=== PATIENT | male | born 1980 | race Hispanic/Latino ===

== ENCOUNTER 2020-08-07 12:42 | Emergency (ER) | payer BC ==
--- OUTSIDE RECORDS SUMMARY | 2020-08-07 12:44 | XMS REPORT | Continuity of Care Document ---
:1980 Author Organization [facility] t Address [address] [place] [place] [address] Care Team Providers Name Role Phone Goyo Syed Attending Clinician Problems This patient has no known problems. Allergies, Adverse Reactions, Alerts This patient has no known allergies or adverse reactions. Medications This patient has no known medications. Procedures This patient has no known procedures. Encounters Start End Encounter Admission Attending Care Care Encounter Source Date/Time Date/Time Type Type Clinicians Facility Department ID 2020-07-27 2020-07-27 Office [facility]ady [id number] 14:19:02 14:49:02 Visit Sunshine Hairston [id number] Cancer [id number] Center - [id number] [facility] 204 Results This patient has no known results.
[2020-08-07] MEDS ORDERED: HYDROCODONE/APAP 10/325 TAB ONE (14:06)
[2020-08-07] MEDS ORDERED: BUPIVACAINE 0.5% PF 10 ML VIAL ONE (14:06)
[2020-08-07] MEDS ORDERED: LIDOCAINE 1% W/EPI 1:100,000 MDV 20 ML VIAL ONE (14:06)
--- NOTE | 2020-08-07 14:45 | ER ---
Nurse's Notes [facility] Name: Don Watt Age: 39 yrs Sex: Male : 1980 Arrival Date: 08/07/2020 Time: 12:45 Bed 6 Private MD: Diagnosis: Hemorrhoids and perianal venous thrombosis Presentation: 08/07 12:50 Chief complaint: Patient states: Rectal bleeding off/on for 3 days, worse today. Went ll1 to Dr. Cabrera today. He was told he has a Hemoriod's that needs surgery to be removed. No fever. Coronavirus screen: Client denies travel out of the [place] in the last 14 days. At this time, the client does not indicate any symptoms associated with coronavirus-19. Ebola Screen: Patient denies travel to an Ebola-affected area in the 21 days before illness onset. Initial Sepsis Screen: Does the patient meet any 2 criteria? No. Patient's initial sepsis screen is negative. Does the patient have a suspected source of infection? Yes: Other: rectal bleeding. Risk Assessment: Do you want to hurt yourself or someone else? Patient reports no desire to harm self or others. Onset of symptoms was August 05, 2020. 12:50 Method Of Arrival: Ambulatory ll1 12:50 Acuity: BARRIE 3 ll1 Triage Assessment: 12:57 General: Appears in no apparent distress. uncomfortable, Behavior is cooperative, bp appropriate for age, anxious. Pain: Complains of pain in buttocks. EENT: No deficits noted. Neuro: No deficits noted. Cardiovascular: No deficits noted. Respiratory: No deficits noted. GI: Reports rectal bleeding. : No signs and/or symptoms were reported regarding the genitourinary system. Derm: No deficits noted. Musculoskeletal: No deficits noted. Historical: - Allergies: 12:53 Losartan; ll1 - PMHx: 12:53 Hypertension; no longer take meds for HTN; ll1 - PSHx: 12:53 None; ll1 - Immunization history:: Flu vaccine is not up to date. - Social history:: Smoking status: Patient reports the use of cigarette tobacco products, denies chronic smoking, but will smoke occasionally. Screenin:58 Abuse screen: Denies threats or abuse. Denies injuries from another. Nutritional bp screening: No deficits noted. Tuberculosis screening: No symptoms or risk factors identified. Fall Risk None identified. Assessment: 12:58 General: SEE TRIAGE NOTE. bp Vital Signs: 12:50 BP 152 / 99; Pulse 73; Resp 16; Temp 98.1; Pulse Ox 96% ; Weight 156.49 kg; Height 6 ll1 ft. 2 in. (187.96 cm); Pain 2/10; 12:50 Body Mass Index 44.29 (156.49 kg, 187.96 cm) ll1 ED Course: 12:45 Patient arrived in ED. bp1 12:52 Triage completed. ll1 12:53 Arm band placed on Patient placed in an exam room, on a stretcher. ll1 12:56 Rock Hopson, RN is Primary Nurse. bp 12:58 Patient has correct armband on for positive identification. Bed in low position. Call bp light in reach. Side rails up X2. 13:17 Patrick Beyer PA is PHCP. cp 13:17 Juan M Ayala MD is Attending Physician. cp 14:30 Assist provider with I \T\ D: of an abscess on external hemorrhoid Set up I\T\D tray. bp Performed by Patrick HARRY Dressing with 4X4s, Patient tolerated well. 14:44 Daljit Alarcon MD is Referral Physician. cp Administered Medications: 13:50 Drug: HYDROcodone-acetaminophen 10 mg-325 mg 1 tabs Route: PO; bp 14:47 Follow up: Response: Pain is decreased bp 13:51 Drug: Lidocaine-Epinephrine -1%: (1:100,000) 5 ml {Note: AT B/S.} Volume: 20 ml; Route: bp Infiltration; 13:51 Drug: Marcaine (bupivacaine) (0.5 %) 10 ml {Note: AT B/S.} Volume: 10 ml; Route: bp Infiltration; Outcome: 14:45 Discharge ordered by . cp 15:10 Patient left the ED. ll1 Signatures: Patrick Beyer PA PA cp Rock Hopson, RN RN Avril Stearns RN RN ll1 Diane De León bp1
--- NOTE | 2020-08-07 14:45 | EDPHYS ---
Physician Documentation [facility] Name: Don Watt Age: 39 yrs Sex: Male : 1980 Arrival Date: 08/07/2020 Time: 12:45 Bed 6 Private MD: ED Physician Juan M Ayala HPI: 08/07 13:45 This 39 yrs old Male presents to ER via Ambulatory with complaints of Rectal cp Bleeding, Hemorrhoids. 13:45 The patient presents to the emergency department with bleeding from the rectum/anus, cp pain in the rectal area. Onset: The symptoms/episode began/occurred last week. Context: the patient has a known history of hemorrhoids. Associate signs and symptoms: Pertinent negatives: abdominal pain, constipation, diarrhea, fever. Historical: - Allergies: 12:53 Losartan; ll1 - PMHx: 12:53 Hypertension; no longer take meds for HTN; ll1 - PSHx: 12:53 None; ll1 - Immunization history:: Flu vaccine is not up to date. - Social history:: Smoking status: Patient reports the use of cigarette tobacco products, denies chronic smoking, but will smoke occasionally. ROS: 13:47 Constitutional: Negative for fever. cp 13:47 Abdomen/GI: Positive for rectal pain, rectal bleeding, Negative for abdominal pain, diarrhea, constipation. Exam: 13:55 Constitutional: The patient appears in no acute distress, alert, awake, non-toxic, well cp developed, well nourished, obese, uncomfortable. 13:55 Head/Face: Normocephalic, atraumatic. cp 13:55 Chest/axilla: Inspection: normal. 13:55 Cardiovascular: Rate: normal. 13:55 Respiratory: the patient does not display signs of respiratory distress, Respirations: normal, no use of accessory muscles, no retractions, labored breathing, is not present. 13:55 Abdomen/GI: Inspection: abdomen appears normal, Palpation: abdomen is soft and non-tender, in all quadrants, Rectal exam: hemorrhoid(s), external, with associated bleeding, with inflammation, with pain, with thrombosis. Vital Signs: 12:50 BP 152 / 99; Pulse 73; Resp 16; Temp 98.1; Pulse Ox 96% ; Weight 156.49 kg; Height 6 ll1 ft. 2 in. (187.96 cm); Pain 2/10; 12:50 Body Mass Index 44.29 (156.49 kg, 187.96 cm) ll1 Procedures: 15:00 I \T\ D: Incision and drainage was performed for an abscess of the external hemorrhoid cp Prepped with Betadine, Anesthetized with 7 ccs of mixture 1% lidocaine with epi and 0.5% marcaine. Incised with #11 blade. Drained small amount clotted blood Dressing: sterile 4x4 gauze, the patient tolerated the procedure well. MDM: 13:19 Patient medically screened. cp 14:00 Differential diagnosis: hemorrhoids, abscess, pilonidal cyst. cp 14:40 ED course: No results found on inquiry of [employer] prescription monitor program website. cp 14:45 Data reviewed: vital signs, nurses notes, and as a result, I will discharge patient. cp 14:45 Counseling: I had a detailed discussion with the patient and/or guardian regarding: the cp historical points, exam findings, and any diagnostic results supporting the discharge/admit diagnosis, the need for outpatient follow up, a general surgeon, to return to the emergency department if symptoms worsen or persist or if there are any questions or concerns that arise at home. Response to treatment: the patient's symptoms have markedly improved after treatment, and as a result, I will discharge patient. 08/07 13:40 Order name: Dressing - Wound; Complete Time: 13:51 cp 08/07 13:40 Order name: Gloves, Sterile; Complete Time: 13:51 cp 08/07 13:40 Order name: Setup Suture Tray; Complete Time: 13:51 cp Administered Medications: 13:50 Drug: HYDROcodone-acetaminophen 10 mg-325 mg 1 tabs Route: PO; bp 14:47 Follow up: Response: Pain is decreased bp 13:51 Drug: Lidocaine-Epinephrine -1%: (1:100,000) 5 ml {Note: AT B/S.} Volume: 20 ml; Route: bp Infiltration; 13:51 Drug: Marcaine (bupivacaine) (0.5 %) 10 ml {Note: AT B/S.} Volume: 10 ml; Route: bp Infiltration; Disposition: 15:15 Chart complete. cp 16:38 Co-signature as Attending Physician, Juan M Ayala MD I agree with the assessment and kdr plan of care. Disposition: 08/07/20 14:45 Discharged to Home. Impression: Hemorrhoids and perianal venous thrombosis. - Condition is Stable. - Discharge Instructions: Hemorrhoids, How to Take a Sitz Bath. - Prescriptions for Colace 100 mg Oral Capsule - take 2 tablet by ORAL route every 12 hours; 30 tablet. Tylenol- Codeine #3 300-30 mg Oral Tablet - take 2 tablets by ORAL route every 4-6 hours As needed; 20 tablet. - Medication Reconciliation Form, Thank You Letter, Antibiotic Education, Prescription Opioid Use form. - Follow up: Daljit Alarcon MD; When: 2 - 3 days; Reason: Recheck today's complaints. - Problem is an ongoing problem. - Symptoms have improved. Signatures: Juan M Ayala MD MD [facility] Patrick Beyer PA PA cp Peltier, Brian, RN RN bp Avril Gross RN RN ll1 Corrections: (The following items were deleted from the chart) 15:10 14:45 08/07/2020 14:45 Discharged to Home. Impression: Hemorrhoids and perianal venous ll1 thrombosis. Condition is Stable. Forms are Medication Reconciliation Form, Thank You Letter, Antibiotic Education, Prescription Opioid Use. Follow up: Daljit Alarcon; When: 2 - 3 days; Reason: Recheck today's complaints. Problem is an ongoing problem. Symptoms have improved. cp
[2020-08-07 15:16] VITALS: BP 152/99; TEMP 98.1; O2SAT 96
== END 2020-08-07 15:10 | disposition home or self-care (01) ==
LOC: ER 12:42
PROC: 0D9QXZZ Drainage of Anus, External Approach (ICD-10-PCS; principal; 2020-08-07)
DX: K64.5 Perianal venous thrombosis (principal); I10 Essential (primary) hypertension; F17.210 Nicotine dependence, cigarettes, uncomplicated; Z88.8 Allergy status to other drugs, medicaments and biological substances
CPT/HCPCS: 99283

== ENCOUNTER 2024-02-03 07:46 | Emergency (ER) | payer BC ==
--- OUTSIDE RECORDS SUMMARY | 2024-02-03 07:50 | XMS REPORT | Continuity of Care Document ---
Author Name Unknown Address [address] [place] [address] [facility] thconnect Address [address] [place] [address] Care Team Providers Care Physical Therapy Attendant Name Role Phone Regi Galeas Primary Care Physician [phone] VE POWERS Attending Clinician Unavailable Doctor Unassigned, [place] Attending Clinician U navailable Regi Galeas Attending Clinician [phone] Lab, Ang - Db Attending Clinician Unavailable REGI LORENZ Attending Clinician Unavailable Dayron Attending Clinician Unavail able Christiano Escoto Attending Clinician Unavailab Christiano Frye Attending Clinician [phone] MERRY BENITEZ Attending Clinician Unavaila [facility] Attending Clinician [phone] Dayron Admitting Clinician Unavail able Christiano Escoto Admitting Clinician Unavailab le Payers Payer Name Policy Type Policy Number Effective Date Expirati on Date Source BCBS 2 [id number] 2022 00[place] [id number] 2012 00:00:00 Problems Condition Name Condition Details Condition Category Status Onset Date Resolution Date Last Treatment Date Treating Clinician Comments Source 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 Problem Active 2021-03 0-11 00:00: 00 [facility] Pain in right foot Pain in Right Foot Problem Active 11-22 00:00: 00 [facility] Plantar fasciitis of right foot Plantar Fasciitis of Right Foot Problem Active 11-22 00:00: 00 [facility] Peroneal tendinitis of right lower limb Peroneal Tendinitis of Right Lower Limb Problem Active 11-22 00:00: 00 [facility] 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 Disease Active 07-31 00:00: 00 [facility] 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 Disease Active 07-31 00:00: 00 [facility] Acute cystitis without hematuria Acute cystitis without hematuria Disease Active 07-27 00:00: 00 [facility] Pain in both testicles Pain in both testicles Disease Active 06-23 00:00: 00 [facility] History of UTI History of UTI Disease Active 06-23 00:00: [address] [facility] Abnormal CT of the abdomen Abnormal CT of the abdomen Disease Active 04-11 00:00: 00 [facility] Prediabete s Prediabete s Disease Active 03-29 00:00: 00 [facility] Morbid obesity with BMI of 45.0-49.9, adult Morbid obesity with BMI of 45.0-49.9, adult Disease Active 06-13 00:00: 00 [facility] Essential hypertensi on Essential hypertensi on Disease Active 04-25 00:00: 00 [facility] Fatty liver Fatty liver Disease Active [facility] Hypertensi on Hypertensi on Disease Active [facility] Morbid obesity Morbid obesity Disease Active [facility] Allergies, Adverse Reactions, Alerts Allergy Name Allergy Type Status Severity Reaction(s) Onset Date Inactive Date Treating Clinician Comments Source losartan DA Active [facility] COUGH 12-07 00:00: 00 [facility] LISINOPR [place] DRUG INGREDI Active COUGH 04-25 00:00: 00 [facility] Lisinopr il Propensi ty to adverse reaction s to drug Active Cough 04-25 00:00: 00 [facility] Lisinopr il Propensi ty to adverse reaction s Active Unknown - See comments 04-25 00:00: 00 [facility] Social History Social Habit Start Date Stop Date Quantity Comments Source Gender identity [facility] Sexual orientation [facility] History SDOH Alcohol Std Drinks [facility] History SDOH Alcohol Binge [facility] Tobacco Comment 2022-10-05 00:00:00 2022-10-05 00:00:00 1-2 cigarettes daily [facility] History of Social function 2022-10-05 00:00:00 2022-10-05 00:00:00 [facility] Tobacco use and exposure 2022-10-05 00:00:00 2022-10-05 00:00:00 Smokeless tobacco non-user [facility] Alcohol intake 2022-10-05 00:00:00 2022-10-05 00:00:00 Current drinker of alcohol (finding) [facility] Exposure to SARS-CoV-2 (event) 2021-07-18 00:00:00 2021-07-28 07:39:00 Not sure [facility] History SDOH Alcohol Frequency 2018-12-19 00:00:00 2018-12-19 00:00:00 2 [facility] Alcohol Comment 2018-12-19 00:00:00 2018-12-19 00:00:00 1 drink per month [facility] History of tobacco use 2015-09-23 00:00:00 Cigarette Smoker [facility] Sex Assigned At 1980 00:00:00 1980 00:00:00 [facility] Smoking Status Start Date Stop Date Source Light Tobacco Smoker [facility] Medicine Occasional tobacco smoker 2022-10-05 00:00:00 [facility] Medications Ordered Medication Name Filled Medication Name Start Date Stop Date Current Medication? Ordering Clinician Indication Dosage Frequency Signature (SIG) Comments Components Source semaglutide (OZEMPIC) 0.25 mg or 0.5 mg (2 mg/3 mL) PnIj 10-12 00:00: 00 Yes [id number] .25mg inject 0.25 mg under the skin weekly. [facility] semaglutide (OZEMPIC) 0.25 mg or 0.5 mg(2 mg/1.5 mL) PnIj 10-09 00:00: 00 10-12 00:00 :00 No [id number] .25mg inject 0.25 mg under the skin weekly. [facility] losartan 25 mg tablet 10-05 00:00: 00 Yes [id number] 25mg Take 1 tablet by mouth in the morning. [facility] hydrocortis one (ANUSOL-HC) 2.5 % rectal cream 07-31 00:00: 00 Yes [id number] Apply BID to hemorrhoid after BM as needed. [facility] amoxicillin 875 mg-potassiu m clavulanate 125 mg tablet TAKE 1 TABLET BY MOUTH TWICE DAILY. amoxicillin 875 mg-potassiu m clavulanate 125 mg tablet TAKE 1 TABLET BY MOUTH TWICE DAILY. No amoxicilli n 875 mg-potassi um clavulanat e 125 mg tablet TAKE 1 TABLET BY MOUTH TWICE DAILY. [facility] cephalexin 500 mg capsule Take 1 capsule every 6 hours by oral route. cephalexin 500 mg capsule Take 1 capsule every 6 hours by oral route. No cephalexin 500 mg capsule Take 1 capsule every 6 hours by oral route. [facility] ciprofloxac in 500 mg tablet TAKE 1 TABLET BY MOUTH EVERY DAY WITH MEALS ciprofloxac in 500 mg tablet TAKE 1 TABLET BY MOUTH EVERY DAY WITH MEALS No ciprofloxa ganesh 500 mg tablet TAKE 1 TABLET BY MOUTH EVERY DAY WITH MEALS [facility] etodolac 500 mg tablet TAKE 1 TABLET BY MOUTH TWICE DAILY etodolac 500 mg tablet TAKE 1 TABLET BY MOUTH TWICE DAILY No etodolac 500 mg tablet TAKE 1 TABLET BY MOUTH TWICE DAILY [facility] hydrocodone 7.5 mg-acetamin ophen 325 mg tablet TAKE 1 TABLET BY MOUTH EVERY 4 TO 6 HOURS hydrocodone 7.5 mg-acetamin ophen 325 mg tablet TAKE 1 TABLET BY MOUTH EVERY 4 TO 6 HOURS No hydrocodon e 7.5 mg-acetami nophen 325 mg tablet TAKE 1 TABLET BY MOUTH EVERY 4 TO 6 HOURS [facility] methylpredn isolone 4 mg tablets in a dose pack FOLLOW PACKAGE DIRECTIONS methylpredn isolone 4 mg tablets in a dose pack FOLLOW PACKAGE DIRECTIONS No methylpred nisolone 4 mg tablets in a dose pack FOLLOW PACKAGE DIRECTIONS [facility] minocycline 100 mg tablet TAKE 1 TABLET BY MOUTH EVERY 12 HOURS WITH MEALS minocycline 100 mg tablet TAKE 1 TABLET BY MOUTH EVERY 12 HOURS WITH MEALS No minocyclin e 100 mg tablet TAKE 1 TABLET BY MOUTH EVERY 12 HOURS WITH MEALS [facility] amoxicillin 875 mg-potassiu m clavulanate 125 mg tablet TAKE 1 TABLET BY MOUTH TWICE DAILY. amoxicillin 875 mg-potassiu m clavulanate 125 mg tablet TAKE 1 TABLET BY MOUTH TWICE DAILY. No amoxicilli n 875 mg-potassi um clavulanat e 125 mg tablet TAKE 1 TABLET BY MOUTH TWICE DAILY. [facility] cephalexin 500 mg capsule Take 1 capsule every 6 hours by oral route. cephalexin 500 mg capsule Take 1 capsule every 6 hours by oral route. No cephalexin 500 mg capsule Take 1 capsule every 6 hours by oral route. [facility] ciprofloxac in 500 mg tablet TAKE 1 TABLET BY MOUTH EVERY DAY WITH MEALS ciprofloxac in 500 mg tablet TAKE 1 TABLET BY MOUTH EVERY DAY WITH MEALS No ciprofloxa ganesh 500 mg tablet TAKE 1 TABLET BY MOUTH EVERY DAY WITH MEALS [facility] etodolac 500 mg tablet TAKE 1 TABLET BY MOUTH TWICE DAILY etodolac 500 mg tablet TAKE 1 TABLET BY MOUTH TWICE DAILY No etodolac 500 mg tablet TAKE 1 TABLET BY MOUTH TWICE DAILY [facility] hydrocodone 7.5 mg-acetamin ophen 325 mg tablet TAKE 1 TABLET BY MOUTH EVERY 4 TO 6 HOURS hydrocodone 7.5 mg-acetamin ophen 325 mg tablet TAKE 1 TABLET BY MOUTH EVERY 4 TO 6 HOURS No hydrocodon e 7.5 mg-acetami nophen 325 mg tablet TAKE 1 TABLET BY MOUTH EVERY 4 TO 6 HOURS [facility] methylpredn isolone 4 mg tablets in a dose pack FOLLOW PACKAGE DIRECTIONS methylpredn isolone 4 mg tablets in a dose pack FOLLOW PACKAGE DIRECTIONS No methylpred nisolone 4 mg tablets in a dose pack FOLLOW PACKAGE DIRECTIONS [facility] minocycline 100 mg tablet TAKE 1 TABLET BY MOUTH EVERY 12 HOURS WITH MEALS minocycline 100 mg tablet TAKE 1 TABLET BY MOUTH EVERY 12 HOURS WITH MEALS No minocyclin e 100 mg tablet TAKE 1 TABLET BY MOUTH EVERY 12 HOURS WITH MEALS [facility] amoxicillin 875 mg-potassiu m clavulanate 125 mg tablet TAKE 1 TABLET BY MOUTH TWICE DAILY. amoxicillin 875 mg-potassiu m clavulanate 125 mg tablet TAKE 1 TABLET BY MOUTH TWICE DAILY. No amoxicilli n 875 mg-potassi um clavulanat e 125 mg tablet TAKE 1 TABLET BY MOUTH TWICE DAILY. [facility] cephalexin 500 mg capsule Take 1 capsule every 6 hours by oral route. cephalexin 500 mg capsule Take 1 capsule every 6 hours by oral route. No cephalexin 500 mg capsule Take 1 capsule every 6 hours by oral route. [facility] ciprofloxac in 500 mg tablet TAKE 1 TABLET BY MOUTH EVERY DAY WITH MEALS ciprofloxac in 500 mg tablet TAKE 1 TABLET BY MOUTH EVERY DAY WITH MEALS No ciprofloxa ganesh 500 mg tablet TAKE 1 TABLET BY MOUTH EVERY DAY WITH MEALS [facility] etodolac 500 mg tablet TAKE 1 TABLET BY MOUTH TWICE DAILY etodolac 500 mg tablet TAKE 1 TABLET BY MOUTH TWICE DAILY No etodolac 500 mg tablet TAKE 1 TABLET BY MOUTH TWICE DAILY [facility] hydrocodone 7.5 mg-acetamin ophen 325 mg tablet TAKE 1 TABLET BY MOUTH EVERY 4 TO 6 HOURS hydrocodone 7.5 mg-acetamin ophen 325 mg tablet TAKE 1 TABLET BY MOUTH EVERY 4 TO 6 HOURS No hydrocodon e 7.5 mg-acetami nophen 325 mg tablet TAKE 1 TABLET BY MOUTH EVERY 4 TO 6 HOURS [facility] methylpredn isolone 4 mg tablets in a dose pack FOLLOW PACKAGE DIRECTIONS methylpredn isolone 4 mg tablets in a dose pack FOLLOW PACKAGE DIRECTIONS No methylpred nisolone 4 mg tablets in a dose pack FOLLOW PACKAGE DIRECTIONS [facility] minocycline 100 mg tablet TAKE 1 TABLET BY MOUTH EVERY 12 HOURS WITH MEALS minocycline 100 mg tablet TAKE 1 TABLET BY MOUTH EVERY 12 HOURS WITH MEALS No minocyclin e 100 mg tablet TAKE 1 TABLET BY MOUTH EVERY 12 HOURS WITH MEALS [facility] amoxicillin 875 mg-potassiu m clavulanate 125 mg tablet TAKE 1 TABLET BY MOUTH TWICE DAILY. amoxicillin 875 mg-potassiu m clavulanate 125 mg tablet TAKE 1 TABLET BY MOUTH TWICE DAILY. No amoxicilli n 875 mg-potassi um clavulanat e 125 mg tablet TAKE 1 TABLET BY MOUTH TWICE DAILY. [facility] cephalexin 500 mg capsule Take 1 capsule every 6 hours by oral route. cephalexin 500 mg capsule Take 1 capsule every 6 hours by oral route. No cephalexin 500 mg capsule Take 1 capsule every 6 hours by oral route. [facility] ciprofloxac in 500 mg tablet TAKE 1 TABLET BY MOUTH EVERY DAY WITH MEALS ciprofloxac in 500 mg tablet TAKE 1 TABLET BY MOUTH EVERY DAY WITH MEALS No ciprofloxa ganesh 500 mg tablet TAKE 1 TABLET BY MOUTH EVERY DAY WITH MEALS [facility] etodolac 500 mg tablet TAKE 1 TABLET BY MOUTH TWICE DAILY etodolac 500 mg tablet TAKE 1 TABLET BY MOUTH TWICE DAILY No etodolac 500 mg tablet TAKE 1 TABLET BY MOUTH TWICE DAILY [facility] gabapentin 300 mg capsule Take 1 capsule every day by oral route at bedtime. gabapentin 300 mg capsule Take 1 capsule every day by oral route at bedtime. No 1capsul e(s) Q1D gabapentin 300 mg capsule Take 1 capsule every day by oral route at bedtime. [facility] hydrocodone 7.5 mg-acetamin ophen 325 mg tablet TAKE 1 TABLET BY MOUTH EVERY 4 TO 6 HOURS hydrocodone 7.5 mg-acetamin ophen 325 mg tablet TAKE 1 TABLET BY MOUTH EVERY 4 TO 6 HOURS No hydrocodon e 7.5 mg-acetami nophen 325 mg tablet TAKE 1 TABLET BY MOUTH EVERY 4 TO 6 HOURS [facility] methylpredn isolone 4 mg tablets in a dose pack FOLLOW PACKAGE DIRECTIONS methylpredn isolone 4 mg tablets in a dose pack FOLLOW PACKAGE DIRECTIONS No methylpred nisolone 4 mg tablets in a dose pack FOLLOW PACKAGE DIRECTIONS [facility] minocycline 100 mg tablet TAKE 1 TABLET BY MOUTH EVERY 12 HOURS WITH MEALS minocycline 100 mg tablet TAKE 1 TABLET BY MOUTH EVERY 12 HOURS WITH MEALS No minocyclin e 100 mg tablet TAKE 1 TABLET BY MOUTH EVERY 12 HOURS WITH MEALS [facility] amoxicillin 875 mg-potassiu m clavulanate 125 mg tablet TAKE 1 TABLET BY MOUTH TWICE DAILY amoxicillin 875 mg-potassiu m clavulanate 125 mg tablet TAKE 1 TABLET BY MOUTH TWICE DAILY No amoxicilli n 875 mg-potassi um clavulanat e 125 mg tablet TAKE 1 TABLET BY MOUTH TWICE DAILY [facility] bromphenira mine-pseudo ephedrine-D M 2 mg-30 mg-10 mg/5 mL oral syrup TAKE 5 ML BY MOUTH EVERY 5 HOURS bromphenira mine-pseudo ephedrine-D M 2 mg-30 mg-10 mg/5 mL oral syrup TAKE 5 ML BY MOUTH EVERY 5 HOURS No bromphenir amine-pseu doephedrin e-DM 2 mg-30 mg-10 mg/5 mL oral syrup TAKE 5 ML BY MOUTH EVERY 5 HOURS [facility] cephalexin 500 mg capsule Take 1 capsule every 6 hours by oral route. cephalexin 500 mg capsule Take 1 capsule every 6 hours by oral route. No cephalexin 500 mg capsule Take 1 capsule every 6 hours by oral route. [facility] ciprofloxac in 500 mg tablet TAKE 1 TABLET BY MOUTH EVERY DAY WITH MEALS ciprofloxac in 500 mg tablet TAKE 1 TABLET BY MOUTH EVERY DAY WITH MEALS No ciprofloxa ganesh 500 mg tablet TAKE 1 TABLET BY MOUTH EVERY DAY WITH MEALS [facility] etodolac 500 mg tablet TAKE 1 TABLET BY MOUTH TWICE DAILY etodolac 500 mg tablet TAKE 1 TABLET BY MOUTH TWICE DAILY No etodolac 500 mg tablet TAKE 1 TABLET BY MOUTH TWICE DAILY [facility] gabapentin 300 mg capsule TAKE 1 CAPSULE BY MOUTH EVERY DAY AT BEDTIME gabapentin 300 mg capsule TAKE 1 CAPSULE BY MOUTH EVERY DAY AT BEDTIME No gabapentin 300 mg capsule TAKE 1 CAPSULE BY MOUTH EVERY DAY AT BEDTIME [facility] hydrocodone 7.5 mg-acetamin ophen 325 mg tablet TAKE 1 TABLET BY MOUTH EVERY 4 TO 6 HOURS hydrocodone 7.5 mg-acetamin ophen 325 mg tablet TAKE 1 TABLET BY MOUTH EVERY 4 TO 6 HOURS No hydrocodon e 7.5 mg-acetami nophen 325 mg tablet TAKE 1 TABLET BY MOUTH EVERY 4 TO 6 HOURS [facility] methylpredn isolone 4 mg tablets in a dose pack FOLLOW PACKAGE DIRECTIONS methylpredn isolone 4 mg tablets in a dose pack FOLLOW PACKAGE DIRECTIONS No methylpred nisolone 4 mg tablets in a dose pack FOLLOW PACKAGE DIRECTIONS [facility] minocycline 100 mg tablet TAKE 1 TABLET BY MOUTH EVERY 12 HOURS WITH MEALS minocycline 100 mg tablet TAKE 1 TABLET BY MOUTH EVERY 12 HOURS WITH MEALS No minocyclin e 100 mg tablet TAKE 1 TABLET BY MOUTH EVERY 12 HOURS WITH MEALS [facility] amoxicillin 875 mg-potassiu m clavulanate 125 mg tablet TAKE 1 TABLET BY MOUTH TWICE DAILY. amoxicillin 875 mg-potassiu m clavulanate 125 mg tablet TAKE 1 TABLET BY MOUTH TWICE DAILY. No amoxicilli n 875 mg-potassi um clavulanat e 125 mg tablet TAKE 1 TABLET BY MOUTH TWICE DAILY. [facility] cephalexin 500 mg capsule Take 1 capsule every 6 hours by oral route. cephalexin 500 mg capsule Take 1 capsule every 6 hours by oral route. No cephalexin 500 mg capsule Take 1 capsule every 6 hours by oral route. [facility] etodolac 500 mg tablet TAKE 1 TABLET BY MOUTH TWICE DAILY etodolac 500 mg tablet TAKE 1 TABLET BY MOUTH TWICE DAILY No etodolac 500 mg tablet TAKE 1 TABLET BY MOUTH TWICE DAILY [facility] hydrocodone 7.5 mg-acetamin ophen 325 mg tablet Take 1 tablet every 4-6 hours by oral route. hydrocodone 7.5 mg-acetamin ophen 325 mg tablet Take 1 tablet every 4-6 hours by oral route. No 1 Q5H hydrocodon e 7.5 mg-acetami nophen 325 mg tablet Take 1 tablet every 4-6 hours by oral route. [facility] methylpredn isolone 4 mg tablets in a dose pack FOLLOW PACKAGE DIRECTIONS methylpredn isolone 4 mg tablets in a dose pack FOLLOW PACKAGE DIRECTIONS No methylpred nisolone 4 mg tablets in a dose pack FOLLOW PACKAGE DIRECTIONS [facility] amoxicillin 875 mg-potassiu m clavulanate 125 mg tablet TAKE 1 TABLET BY MOUTH TWICE DAILY. amoxicillin 875 mg-potassiu m clavulanate 125 mg tablet TAKE 1 TABLET BY MOUTH TWICE DAILY. No amoxicilli n 875 mg-potassi um clavulanat e 125 mg tablet TAKE 1 TABLET BY MOUTH TWICE DAILY. [facility] cephalexin 500 mg capsule Take 1 capsule every 6 hours by oral route. cephalexin 500 mg capsule Take 1 capsule every 6 hours by oral route. No cephalexin 500 mg capsule Take 1 capsule every 6 hours by oral route. [facility] etodolac 500 mg tablet TAKE 1 TABLET BY MOUTH TWICE DAILY etodolac 500 mg tablet TAKE 1 TABLET BY MOUTH TWICE DAILY No etodolac 500 mg tablet TAKE 1 TABLET BY MOUTH TWICE DAILY [facility] hydrocodone 7.5 mg-acetamin ophen 325 mg tablet TAKE 1 TABLET BY MOUTH EVERY 4 TO 6 HOURS hydrocodone 7.5 mg-acetamin ophen 325 mg tablet TAKE 1 TABLET BY MOUTH EVERY 4 TO 6 HOURS No hydrocodon e 7.5 mg-acetami nophen 325 mg tablet TAKE 1 TABLET BY MOUTH EVERY 4 TO 6 HOURS [facility] methylpredn isolone 4 mg tablets in a dose pack FOLLOW PACKAGE DIRECTIONS methylpredn isolone 4 mg tablets in a dose pack FOLLOW PACKAGE DIRECTIONS No methylpred nisolone 4 mg tablets in a dose pack FOLLOW PACKAGE DIRECTIONS [facility] amoxicillin 875 mg-potassiu m clavulanate 125 mg tablet TAKE 1 TABLET BY MOUTH TWICE DAILY. amoxicillin 875 mg-potassiu m clavulanate 125 mg tablet TAKE 1 TABLET BY MOUTH TWICE DAILY. No amoxicilli n 875 mg-potassi um clavulanat e 125 mg tablet TAKE 1 TABLET BY MOUTH TWICE DAILY. [facility] cephalexin 500 mg capsule Take 1 capsule every 6 hours by oral route. cephalexin 500 mg capsule Take 1 capsule every 6 hours by oral route. No cephalexin 500 mg capsule Take 1 capsule every 6 hours by oral route. [facility] etodolac 500 mg tablet TAKE 1 TABLET BY MOUTH TWICE DAILY etodolac 500 mg tablet TAKE 1 TABLET BY MOUTH TWICE DAILY No etodolac 500 mg tablet TAKE 1 TABLET BY MOUTH TWICE DAILY [facility] hydrocodone 7.5 mg-acetamin ophen 325 mg tablet TAKE 1 TABLET BY MOUTH EVERY 4 TO 6 HOURS hydrocodone 7.5 mg-acetamin ophen 325 mg tablet TAKE 1 TABLET BY MOUTH EVERY 4 TO 6 HOURS No hydrocodon e 7.5 mg-acetami nophen 325 mg tablet TAKE 1 TABLET BY MOUTH EVERY 4 TO 6 HOURS [facility] methylpredn isolone 4 mg tablets in a dose pack FOLLOW PACKAGE DIRECTIONS methylpredn isolone 4 mg tablets in a dose pack FOLLOW PACKAGE DIRECTIONS No methylpred nisolone 4 mg tablets in a dose pack FOLLOW PACKAGE DIRECTIONS [facility] amoxicillin 875 mg-potassiu m clavulanate 125 mg tablet TAKE 1 TABLET BY MOUTH TWICE DAILY. amoxicillin 875 mg-potassiu m clavulanate 125 mg tablet TAKE 1 TABLET BY MOUTH TWICE DAILY. No amoxicilli n 875 mg-potassi um clavulanat e 125 mg tablet TAKE 1 TABLET BY MOUTH TWICE DAILY. [facility] cephalexin 500 mg capsule Take 1 capsule every 6 hours by oral route. cephalexin 500 mg capsule Take 1 capsule every 6 hours by oral route. No cephalexin 500 mg capsule Take 1 capsule every 6 hours by oral route. [facility] ciprofloxac in 500 mg tablet TAKE 1 TABLET BY MOUTH EVERY DAY WITH MEALS ciprofloxac in 500 mg tablet TAKE 1 TABLET BY MOUTH EVERY DAY WITH MEALS No ciprofloxa ganesh 500 mg tablet TAKE 1 TABLET BY MOUTH EVERY DAY WITH MEALS [facility] etodolac 500 mg tablet TAKE 1 TABLET BY MOUTH TWICE DAILY etodolac 500 mg tablet TAKE 1 TABLET BY MOUTH TWICE DAILY No etodolac 500 mg tablet TAKE 1 TABLET BY MOUTH TWICE DAILY [facility] hydrocodone 7.5 mg-acetamin ophen 325 mg tablet TAKE 1 TABLET BY MOUTH EVERY 4 TO 6 HOURS hydrocodone 7.5 mg-acetamin ophen 325 mg tablet TAKE 1 TABLET BY MOUTH EVERY 4 TO 6 HOURS No hydrocodon e 7.5 mg-acetami nophen 325 mg tablet TAKE 1 TABLET BY MOUTH EVERY 4 TO 6 HOURS [facility] methylpredn isolone 4 mg tablets in a dose pack FOLLOW PACKAGE DIRECTIONS methylpredn isolone 4 mg tablets in a dose pack FOLLOW PACKAGE DIRECTIONS No methylpred nisolone 4 mg tablets in a dose pack FOLLOW PACKAGE DIRECTIONS [facility] minocycline 100 mg tablet TAKE 1 TABLET BY MOUTH EVERY 12 HOURS WITH MEALS minocycline 100 mg tablet TAKE 1 TABLET BY MOUTH EVERY 12 HOURS WITH MEALS No minocyclin e 100 mg tablet TAKE 1 TABLET BY MOUTH EVERY 12 HOURS WITH MEALS [facility] amoxicillin 875 mg-potassiu m clavulanate 125 mg tablet TAKE 1 TABLET BY MOUTH TWICE DAILY. amoxicillin 875 mg-potassiu m clavulanate 125 mg tablet TAKE 1 TABLET BY MOUTH TWICE DAILY. No amoxicilli n 875 mg-potassi um clavulanat e 125 mg tablet TAKE 1 TABLET BY MOUTH TWICE DAILY. [facility] etodolac 500 mg tablet TAKE 1 TABLET BY MOUTH TWICE DAILY etodolac 500 mg tablet TAKE 1 TABLET BY MOUTH TWICE DAILY No etodolac 500 mg tablet TAKE 1 TABLET BY MOUTH TWICE DAILY [facility] methylpredn isolone 4 mg tablets in a dose pack FOLLOW PACKAGE DIRECTIONS methylpredn isolone 4 mg tablets in a dose pack FOLLOW PACKAGE DIRECTIONS No methylpred nisolone 4 mg tablets in a dose pack FOLLOW PACKAGE DIRECTIONS [facility] Immunizations Ordered Immunization Name Filled Immunization Name Date Status Comments Source TDAP 2011-12-20 00:00:00 Completed [facility] TDAP 2011-12-20 00:00:00 Completed [facility] TDAP 2011-12-20 00:00:00 Completed [facility] TDAP 2011-12-20 00:00:00 Completed [facility] TDAP 2011-12-20 00:00:00 Completed [facility] TDAP 2011-12-20 00:00:00 Completed [facility] TDAP 2011-12-20 00:00:00 Completed [facility] TDAP 2011-12-20 00:00:00 Completed [facility] TDAP 2011-12-20 00:00:00 Completed [facility] TDAP Unknown Completed [facility] Vital Signs Vital Name Observation Time Observation Value Comments S ource Systolic blood pressure 2022-10-05 19:23:00 147 [facility] Diastolic blood pressure 2022-10-05 19:23:00 90 mm[facility]Hg[facility] Heart rate 2022-10-05 19:23:00 67 /min [facility] Body height 2022-10-05 19:22:00 188 cm [facility] Body weight 2022-10-05 19:22:00 168.375 kg [facility] BMI 2022-10-05 19:22:00 47.66 kg/m2 [facility] Oxygen saturation in Arterial blood by Pulse oximetry 2022-10-05 19:22:00 98 /min [facility] Systolic blood pressure 2021-07-28 12:45:00 114 mm[Hg[facility] Diastolic blood pressure 2021-07-28 12:45:00 74 mm[Hg[facility] Heart rate 2021-07-28 12:45:00 57 /min [facility] Body height 2021-07-28 12:45:00 188 cm [facility] Body weight 2021-07-28 12:45:00 151.955 kg [facility] BMI 2021-07-28 12:45:00 43.01 kg/m2 [facility] Oxygen saturation in Arterial blood by Pulse oximetry 2021-07-28 12:45:00 98 /min [facility] Procedures Procedure Date / Time Performed Performing Clinicia n Source EXTERNAL PROVIDER RECORDS 2022-10-11 05:01:00 Doctor Unassigned, [place] [facility] XR, foot, 3 or more view 2021-11-22 00:00:00 [facility] MRI, foot, w/o contrast 2021-11-22 00:00:00 [facility] Plan of Care Planned Activity Planned Date Details Comments Source Instructions [facility] Encounters Start Date/Time End Date/Time Encounter Type Admission Type Attending Clinicians Care Facility Care Department Encounter ID Source 2022-12-20 14:30:00 2022-12-20 14:30:00 Outpatient [facility] [id number] Claire Garcia 2022-10-19 00:00:00 2022-10-19 00:00:00 Patient Secure Msg Doctor Unassigned, [place] [facility] 1.2840.114 350.1.13.10 4.2.7.2.686 [id number] [facility] 2022-10-17 00:00:00 2022-10-17 00:00:00 Telephone Regi Lorenz [facility] 1.840.114 350.1.13.10 4.2.7.2.686 [id number] [facility] 2022-10-11 00:00:00 2022-10-11 00:00:00 Orders Only Doctor Unassigned, [place] [facility] 1.840.114 350.1.13.10 4.2.7.2.686 [id number] [facility] 2022-10-11 00:00:00 2022-10-11 00:00:00 Telephone RiaRegi wooten [facility] 1.840.114 350.1.13.10 4.2.7.2.686 [id number] [facility] 2022-10-09 00:00:00 2022-10-09 00:00:00 Telephone Regi Lorenz [facility] 1.2.840.114 350.1.13.10 4.2.7.2.686 [id number] [facility] 2022-10-05 15:30:00 2022-10-05 15:45:00 Supervisor Cytology Visit Lab, Ang - Db Regi Lorenz [facility] 1..840.114 350.1.13.10 4.2.7.2.686 [id number] [facility] 2022-10-05 14:30:00 2022-10-05 15:17:51 Outpatient R REGI LORENZ [facility] [id number] [facility] 2022-10-05 14:30:00 2022-10-05 15:17:51 Office Visit Regi Lorenz [facility] NESS?[facility] 1.2.840.114 350.1.13.10 4.2.7.2.686 [id number] [facility] 2022-10-03 00:00:00 2022-10-03 00:00:00 Telephone Regi Lorenz [facility] N[facility] 1.2.840.114 350.1.13.10 4.2.7.2.686 [id number] [facility] 2022-06-20 00:00:00 2022-06-20 00:00:00 Outpatient YOAV_Cathy Kevin AO AO [id number] [facility] 2022-06-20 00:00:00 2022-06-20 00:00:00 Christiano Escoto MD: [address] [place] [address] , Ph. [phone] [facility] [place] [facility] [place] - [facility]_Ofc [facility] [id number] [facility] 2022-04-14 00:00:00 2022-04-14 00:00:00 Outpatient FOG_Fukuda_ Tomiko_MD AOSM AOSM [id number] [facility] 2022-04-14 00:00:00 2022-04-14 00:00:00 Outpatient FOG_Fukuda_ Tomiko_MD AOSM AOSM [id number] [facility] 2022-04-14 00:00:00 2022-04-14 00:00:00 Outpatient FOG_Fukuda_ Tomiko_MD AOSM AOSM [id number] [facility] 2022-04-14 00:00:00 2022-04-14 00:00:00 Outpatient FOG_Fukuda_ Tomiko_MD AOSM AOSM [id number] [facility] 2022-04-01 00:00:00 2022-04-01 00:00:00 Outpatient FOG_Fukuda_ Tomiko_ AOSM AOSM [id number] [facility] 2022-04-01 00:00:00 2022-04-01 00:00:00 Christiano Escoto MD: [address] [place] [address] , Ph. [phone] [facility] [place] [facility] [place] [facility] [id number] [facility] 2022-03-30 00:00:00 2022-03-30 00:00:00 Outpatient FOG_Fukuda_ Tomiko_MD AOSM AOSM [id number] [facility] 2022-03-30 00:00:00 2022-03-30 00:00:00 Outpatient FOG_Fukuda_ Tomiko_MD AOSM AOSM [id number] [facility] 2022-03-11 00:00:00 2022-03-11 00:00:00 Outpatient FOG_Cathy Kevin AO AO [id number] [facility] 2022-03-11 00:00:00 2022-03-11 00:00:00 Christiano Escoto MD: [address] [place] [phone] , Ph. [phone] [facility] [place] [facility] [address] [id number] [facility] 2022-03-08 00:00:00 2022-03-08 00:00:00 [facility] [id number] [facility] 2022-02-09 00:00:00 2022-02-09 00:00:00 [facility] [id number] [facility] 2022-02-09 00:00:00 2022-02-09 00:00:00 Christiano Escoto MD: [address] [place] [address] , Ph. [phone] [facility] - [facility] [place] - FOG_Ofc [address] [id number] [facility] 2022-01-19 00:00:00 2022-01-19 00:00:00 [facility] [id number] [facility] 2022-01-19 00:00:00 2022-01-19 00:00:00 Christiano Escoto MD: [address] [place] [address] , Ph. [phone] [facility] [place] [facility]_Ofc [address] [place] [id number] [facility] 2022-01-18 00:00:00 2022-01-18 00:00:00 Outpatient FOG_Cathy Kevin AOSM AO [id number] [facility] 2022-01-10 00:00:00 2022-01-10 00:00:00 Outpatient FOG_Fukmagalie_ Atul_ AOSM AO [id number] [facility] 2022-01-10 00:00:00 2022-01-10 00:00:00 Christiano Escoto MD: [address] [place] [address] , Ph. [phone] [facility] [place] [facility] [place] [facility] [id number] [facility] 2021-12-24 00:00:00 2021-12-24 00:00:00 Outpatient FOG_August_ Herberth AOSM AO [id number] [facility] 2021-12-24 00:00:00 2021-12-24 00:00:00 Christiano Escoto MD: [address] [place] [address] , Ph. [phone] [facility] [place] [facility] [place] [facility]Of[facility] [address] [place] [id number] [facility] 2021-12-23 00:00:00 2021-12-23 00:00:00 Outpatient FOG_Cathy Kevin AOSM AO [id number] [facility] 2021-12-21 00:00:00 2021-12-21 00:00:00 Outpatient FOG_August_ Herberth AOSM AOSM [id number] [facility] 2021-12-20 00:00:00 2021-12-20 00:00:00 Outpatient FOG_Fukuda_ Atul_ AOSM AOSM [id number] [facility] 2021-12-16 08:15:00 2021-12-16 08:15:00 [id number] 2021-12-16 00:00:00 2021-12-16 00:00:00 Christiano Escoto MD: [address] [place] [address] , Ph. [phone] [facility] [place] [facility] [place] [facility] [id number] [facility] 2021-12-13 00:00:00 2021-12-13 00:00:00 Outpatient FOG_Fukuda_ Tomiko_ AOSM AOSM [id number] [facility] 2021-12-07 00:00:00 2021-12-07 00:00:00 Outpatient FOG_August_ Tomikgilberto_ AOSM AOSM [id number] [facility] 2021-11-22 10:20:00 2021-11-22 10:20:00 Outpatient Christiano Velasco [facility] [id number] [facility] 2021-11-22 00:00:00 2021-11-22 00:00:00 Outpatient FOG_Fukuda_ Tomiko_ AOSM AOSM [id number] [facility] 2021-11-22 00:00:00 2021-11-22 00:00:00 Christiano Escoto MD: [address] [place] [address] , Ph. [phone] [facility] [place] [facility] [place] [facility] [id number] [facility] 2021-11-22 00:00:00 2021-11-22 00:00:00 Outpatient Christiano Escoto AOSM AOSM [id number] 2021-11-19 00:00:00 2021-11-19 00:00:00 Outpatient FOG_Fukuda_ Tomiko_ AOSM AOSM [id number] [facility] 2021-11-18 00:00:00 2021-11-18 00:00:00 Outpatient FOG_August_ Atul_ AO AO [id number] [facility] 2021-07-28 08:30:00 2021-07-28 08:45:00 Supervisor Cytology Visit Lab, Rubens LorenzRegi [facility] 1.2.840.114 350.1.13.10 4.2.7.2.686 [id number] [facility] 2021-07-28 07:30:00 2021-07-28 08:24:03 Office Visit RiaRegi [facility] 1.2.840.114 350.1.13.10 4.2.7.2.686 [id number] [facility] 2021-07-28 07:30:00 2021-07-28 08:24:03 Outpatient R REGI LORENZ [facility] [id number] [facility] 2021-07-28 07:30:00 2021-07-28 08:24:03 Outpatient REGI JOE [facility] [id number] [facility] 2021-07-28 00:00:00 2021-07-28 00:00:00 Orders Only Doctor Unassigned, [place] [facility] 1.2.840.114 350.1.13.10 4.2.7.2.686 [id number] [facility] 2020-11-13 11:30:00 2020-11-13 11:30:00 Outpatient R REGI LORENZ [facility] [id number] [facility] 2020-08-11 08:30:00 2020-08-11 08:30:00 Outpatient R MERRY BENITEZ [facility] [id number] [facility] 2020-07-31 10:30:00 2020-07-31 10:30:00 Outpatient R REGI LORENZ [facility] [id number] [facility] 2020-07-27 14:19:02 2020-07-27 14:49:02 Office Visit Merry Benitez [facility] 1.2.840.114 350.1.13.10 4.2.7.2.686 [id number] 2020-07-27 14:30:00 2020-07-27 14:30:00 Outpatient R MERRY BENITEZ [facility] [id number] [facility] 2020-07-23 08:00:00 2020-07-23 08:00:00 Outpatient GEORGIANA COLEMANSIE [facility] [id number] [facility] 2020-07-01 00:00:00 2020-07-01 00:00:00 Outpatient R GEORGIANA BENITEZSIE [facility] [id number] [facility] 2020-06-23 09:30:00 2020-06-23 09:30:00 Outpatient R GEORGIANA BENITEZSIE [facility] [id number] [facility] 2019-10-07 09:20:00 2019-10-07 09:20:00 Outpatient R [facility] [id number] [facility] Results Test Description Test Time Test Comments Results Result Co mments Source Novel Coronavirus 2018 [id number] 22:15:00* Test Item Value Reference Range Interpretation Comme nts Novel Coronavirus 2018 Inhouse (test code = COVNONPUI) Negative Negative Positive resul ts are indicative of the presence knFSQQ-LhQ-9 RNA, clinical correlation with patient historyand other diagnostic information is necessary to determinepatient infection status. Positive results do not rule outbacterial infection or co-infection with other viruses. Negative results do not preclude SARS-CoV-2 infection andshould not be used as the sole basis for patient managementdecisions. Negative results must be combined with otherclinical observations, patient history, and epidemiologicalinformation . Detection of SARS-CoV-2 RNA may be affected bysample collection methods, storage conditions, and/or stageof infection. Viral RNA mutations, vaccinations, antiviraltherapeutics, antibiotics, chemotherapeutic orimmunosuppressant drugs have not been evaluated for effectson detection. Results are for the identification of SARS-CoV-2 RNA usingreal-time (RT) polymerase chain reaction (PCR) technologyfor the qualitative detection of nucleic acids from kpzLIKP-BjW-2 virus and diagnosis of SARS-CoV-2 virusinfection. It is an Emergency Use Authorization (EUA) testauthorized by the U.S. FDA. novel coronavirus 2018 [id number] 08:55:00* Test Item Value Reference Range Interpretation Comme nts novel coronavirus 2019 inhou se (test code = novel coronavirus 2019 inhouse) negative negative performing lab: (test code = performing lab:) [facility]- MRI LW JNT W/O CONT [id number] 08:23:00 [facility] 1980 Sex: M Patient Name: SACHIN WATT Unit No: [id number] EXAMS: CPT CODE: [id number] MRI JNT W/[place] [id number] MRI OF THE RIGHT ANKLE DIAGNOSIS: 1. There is a complete tear of the peroneus longus tendon as it crosses the cuboid with 8 mm of retraction. A partial-thickness longitudinal split tear ofthe peroneus brevis tendon is also seen. Peroneal tenosynovitis is noted. Adjacent edema is seen inthe cuboid. The tear is at the level of the skin marker on the sole of the foot. 2. No definite evidence for a plantar fascial mass. COMMENT: COMPARISON: No prior exams available. Scans were performed in the sagittal, axial and coronal planes utilizing T1, spin density with and without fat saturation and inversion recovery images. Bone marrow edema is present as described. No other bony abnormalities are seen. No hyaline cartilage lesions are identified. There is no evidence for a ligamentous sprain or tear. Peroneal tendon tears are present as noted. No other tendon abnormalities are identified. The plantar fascia is within normal limits in appearance. at 0823 Reported and signed by: Sunil Sandy MD CC: Christiano Wise MD Technologist: JEREMI HOOD MRI Transcribed D/ (08) [facility] NAME: DEESACHIN JEAN CARLOS [address] [facility] PHYS: Christiano Clement MD : 1980 AGE: 41 SEX: M [place] [address] LOC: Y.MRI PHONE #: [phone] EXAM DATE: 11/22/2021 STATUS: DEP CLI FAX #: [phone] RAD #: D/C DT PAGE 1 Signed Report Patient Name: SACHIN WATT JR Unit No: [id number] EXAMS: CPT CODE: [id number] MRI LW JNT W/[place] [id number] (Continued) Orig Print D/T: S: 11/23/2021 (08) [facility] NAME: Jackson AWTT ROMARIO EVANGELISTA [address] [facility] PHYS: Christiano Clement MD : 1980 AGE: 41 SEX: M [place] [address] LOC: Y.MRI PHONE #: [phone] EXAM DATE: 11/22/2021 STATUS: DEP CLI FAX #: [phone] RAD #: D/C DT PAGE 2 Signed Report Notes Date/Time Note Provider Source 2022-10-18 14:13:03 Formatting of this n ote might be different from the original. SACHIN WATT JR. (Robert: [id number]) Ozempic (0.25 or 0.5 MG/DOSE) 2MG/3ML pen-injectors Form [facility] Electronic PA Form (2017 [facility]) Created 3 minutes ago Sent to Plan 1 minute ago Plan Response 1 minute ago Submit Clinical Questions 1 minute ago Determination Wait for Determination Please wait for [facility] 2017 to return a determination. Shaina Moore [facility] 2022-10-17 16:23:18 Formatting of this n ote might be different from the original. Pt needs a prior authorization for the Ozempic. Please advise Esther Soto [facility] 2022-10-12 10:04:48 Formatting of this n ote might be different from the original. Sent 3 ml pen. [facility] 2022-10-12 08:45:04 Formatting of this n ote might be different from the original. Stating they only have 3 ml pens not the 1.5ml.Please advise. T Shaina Moore [facility] 2022-10-12 08:16:12 Formatting of this n ote might be different from the original. Ozempic 0.25 mg inject weekly [facility] 2022-10-12 07:32:33 Formatting of this n ote might be different from the original. [facility] 2022-10-11 15:40:14 Formatting of this n ote might be different from the original. Patient states pharmacy is needing clarification on the dose for semaglutide (OZEMPIC) 0.25 mg or 0.5 mg(2 mg/1.5 mL) PnIj, they have not been able to fill for the patient. Arely Larry [facility] 2022-10-05 15:30:00 Formatting of this n ote is different from the original. Images from the original note were not included. Venipuncture collection performed by clean technique on the left anticubitus. Total of 1 attempts were made. Slight pressure and a bandage/dressing were applied to the site(s). The patient experienced no complications. The following specimens were processed according to instructions and sent to [facility] laboratories per lab order on 10/05/2022: LT BLUE SST 2 RED LAV 2 PPT DK GREEN (LiHep) DK GREEN (SodH) COURTNEY DK BLUE (K2) DK BLUE (S) ACD Blood Culture NIPT/NTD [facility] 2022-10-03 11:17:51 Formatting of this n ote might be different from the original. Pt wants to fax a copy of there physical they had today at work loaded in to his chart. Was given fax number. Deann Christian [facility] 2021-12-17 08:10:00 [phone] [place] [address] PATIENT NAME: SACHIN WATT JR ADMIT DATE: 12/16/21 ACCOUNT NO: [id number] ROOM NO: AGE: 41 REPORT TYPE: OPERATIVE REPORT SEX: M ADMITTING PHYSICIAN: ATTENDING PHYSICIAN:Christiano Escoto MD OPERATION DATE: 12/16/2021 PREOPERATIVE DIAGNOSIS: 1. Spontaneous peroneal tendon rupture, right ankle and foot. 2 Split peroneus brevis tendon tear, right ankle and foot. POSTOPERATIVE DIAGNOSIS: 1. Spontaneous peroneal tendon rupture, right ankle and foot. 2. Split peroneus brevis tendon tear, right ankle and foot PROCEDURE PERFORMED: 1. Debridement and repair of peroneus brevis split tendon tear. 2. Debridement and tenodesis of degenerative rupture of the peroneus longus tendon, right ankle and foot. SURGEON: Christiano Escoto MD. BEEHIVE KILN CHARCOAL BURNER: SCOT Cavazos/MAREK. INDICATIONS: Mr. Jarrett is a 41-year-old male who presented to clinic with a long history of lateral foot and plantar foot pain. He has been treated by other provider who diagnosed him with plantar fasciitis. Because of continued symptoms, the patient was evaluated in clinic where he had an MRI, which actually showed evidence of a rupture of his peroneus longus tendon as well as a tear of his peroneus brevis tendon. We discussed the findings with the patient. We discussed the option of treatment with him. We discussed surgery with the patient. We discussed the risks and benefits of surgery with the patient. He understood the risks and benefits and desired to go forward. PROCEDURE IN DETAIL: After informed consent was obtained, the patient was brought back to main operating room and underwent laryngeal mask anesthetic. Once anesthesia was assured, a thigh tourniquet was applied and preset at 275 mmHg. A bump was placed underneath the right hip. The patient received 3 grams of cefazolin and the right lower extremity was then prepped and draped free in the usual sterile fashion. The foot, ankle and leg were then exsanguinated with an Esmarch bandage and tourniquet applied to 275 mmHg. The skin was incised over the lateral aspect of the ankle and foot. Dissection was carried down. We exposed the tendon sheath and then opened up the tendon sheath to expose the peroneal tendons. There was synovial fluid as well as quite a bit of synovitis present, which we debrided. We then evaluated the longus tendon. It was quite thickened distally and at the PATIENT NAME: SACHIN WATT area of the cuboid tunnel, the tendon was quite abnormal, although there was apparent integrity. We did transect the tendon at this level given the findings on the MRI and actually identify that there was quite a bit of scar tissue within the tendon at this level, we then excised the abnormal tendon. The proximal portion of the tendon looked good and therefore, we felt we would be able to tenodese this to the brevis tendon. We evaluated the brevis tendon, which then also had degenerative changes including a split tear, which we debrided. We then tubularized the remaining portion of the tendon with a running suture of 4-0 PDS. We then placed traction onto the longus tendon and tenodesed the longus tendon to the brevis tendon with a running suture of 2-0 FiberWire. We had good stability and good range of motion. We did not incise the superior peroneal retinaculum, leaving the vast majority of it intact. We then irrigated out the wound with copious amounts of normal saline. We did close some of the tendon sheath with sutures of 4-0 PDS. We then reapproximated the skin with 4-0 PDS and finally closed the skin with 4-0 Prolene. An ankle block and local infiltration were performed with a total of 20 mL of 0.5% bupivacaine plain. A sterile dry compressive dressing was applied and the tourniquet deflated after approximately 45 minutes. The toes pinked up nicely. A well-padded posterior U splint was applied. The patient was subsequently awakened, extubated, and taken to the postanesthesia care unit in stable condition. He tolerated the procedure well and no apparent complications. Estimated blood loss was less than 25 mL. The above procedure required an assistant printer floor covering for positioning the patient, prepping the patient, and holding the retractors to provide adequate exposure for the procedure. This allowed the surgeon to have both hands free to perform the surgery itself. Retraction for exposure and visualization, and stabilization of the extremity are vital to the procedure such that it will be completed in an accurate, timely, and safe manner. This is not possible without the aid of an assistant printer floor covering. Dr. Escoto is not part of any residency or fellowship training program, and therefore requires the participation of assistant printer floor covering listed above for this procedure. Dictated By: Christiano Escoto MD Date Dictated: 12/17/2021 08:10:00 Date Transcribed: 12/17/2021 09:49:23 NATALIO/JOSE/FELICITA Receipt ID: [id number] Authenticated by Christiano Escoto MD On 12/21/2021 11:29:28 AM at 1129 PATIENT NAME: SACHIN WATT JR [facility]
[2024-02-03] MEDS ORDERED: CEFTRIAXONE 1000 MG/VIAL ONE (08:07)
[2024-02-03] MEDS ORDERED: DOXYCYCLINE 100 MG CAP PO ONE (08:07)
[2024-02-03] MEDS ORDERED: LIDOCAINE 1% 20 ML MDV ONE (08:07)
[2024-02-03] MEDS ORDERED: TDAP (DIPHTH,PERTUSS(ACELL),TET VAC) 0.5 ML VIAL IMVAC ONE (08:08)
--- NOTE | 2024-02-03 09:19 | ER ---
Nurse's Notes [facility] Name: Don Watt Age: 43 yrs Sex: Male : 1980 Arrival Date: 02/03/2024 Time: 07:46 Bed 5 Private MD: Diagnosis: Laceration without foreign body of left ring finger without damage to nail;Abrasion, left knee Presentation: 02/02 07:54 Chief complaint: [place] and cut 4th finger on oyster bed. hb Bleeding controlled. Coronavirus screen: At this time, the client does not indicate any symptoms associated with coronavirus-19. Ebola Screen: No symptoms or risks identified at this time. Complicating Factors: There are no complicating factors for this patient. Initial Sepsis Screen: Does the patient meet any 2 criteria? No. Patient's initial sepsis screen is negative. Does the patient have a suspected source of infection? No. Patient's initial sepsis screen is negative. Risk Assessment: Do you want to hurt yourself or someone else? Patient reports no desire to harm self or others. Onset of symptoms was February 03, 2024. 07:54 Method Of Arrival: Ambulatory hb 07:54 Acuity: BARRIE 4 hb Triage Assessment: 07:55 General: Appears in no apparent distress. Behavior is calm, cooperative. Pain: Pain hb currently is 7 out of 10 on a pain scale. Neuro: Level of Consciousness is awake, alert, obeys commands, Oriented to person, place, time, situation. Cardiovascular: Patient's skin is warm and dry. Respiratory: Respiratory effort is even, unlabored, Respiratory pattern is regular, symmetrical. Injury Description: Laceration sustained to palmar aspect of proximal phalanx of left ring finger. Historical: - Allergies: 07:55 Losartan; hb - Home Meds: 07:55 None [Active]; hb - PMHx: 07:55 Hypertension; no longer take meds for HTN; hb - Immunization history:: Adult Immunizations up to date. - Infectious Disease History:: Denies. - Social history:: Smoking status: Patient denies any tobacco usage or history of. Screenin:24 [facility] ED Fall Risk Assessment (Adult) History of falling in the last 3 months, aa5 including since admission Yes- single mechanical fall (1 pt) Confusion or Disorientation No (0 pts) Intoxicated or Sedated No (0 pts) Impaired Gait No (0 pts) Mobility Assist Device Used No (0 pt) Altered Elimination No (0 pt) Score/Fall Risk Level 0 - 2 = Low Risk Oriented to surroundings, Maintained a safe environment, Educated pt \T\ family on fall prevention, incl call for assistance when getting out of bed. Abuse screen: Denies threats or abuse. Nutritional screening: No deficits noted. Tuberculosis screening: No symptoms or risk factors identified. Assessment: 08:00 General: Appears uncomfortable, Behavior is calm, cooperative. Pain: Complains of pain aa5 in palmar aspect of proximal phalanx of left ring finger and right hip Pain currently is 7 out of 10 on a pain scale. Quality of pain is described as throbbing, stinging, Pain began 30 min ago. Is continuous. Neuro: Level of Consciousness is awake, alert, obeys commands, Oriented to person, place, time, situation. Cardiovascular: Patient's skin is warm and dry. Respiratory: Airway is patent Respiratory effort is even, unlabored, Respiratory pattern is regular, symmetrical. GI: No signs and/or symptoms were reported involving the gastrointestinal system. : No signs and/or symptoms were reported regarding the genitourinary system. EENT: No signs and/or symptoms were reported regarding the EENT system. Derm: Skin is pink, warm \T\ dry. Musculoskeletal: Range of motion: intact in all extremities. Injury Description: Laceration sustained to palmar aspect of proximal phalanx of left ring finger is clean, 0.5 to 2.5 cm long, not bleeding, was sustained less than 30 minutes ago. 08:22 Reassessment: Irrigated laceration to left ring finger with saline and iodine, pt aa5 tolerated poorly. . 08:30 Reassessment: Laceration irrigated with saline and iodine after lidocaine aa5 administration by . Pt tolerated well. . 09:47 Reassessment: Patient is alert, oriented x 3, equal unlabored respirations, skin aa5 warm/dry/pink. Vital Signs: 07:54 Pulse 61; Resp 16; Temp 97.8; Pulse Ox 99% on R/A; Weight 140.61 kg; Height 6 ft. 2 in. hb ; Pain 7/10; 08:00 BP 132 / 79; aa5 09:00 BP 135 / 82; Pulse 64; Resp 18 S; Pulse Ox 99% on R/A; aa5 07:54 Body Mass Index 39.80 (140.61 kg, 187.96 cm) hb 07:54 Pain Scale: Adult hb ED Course: 07:49 Patient arrived in ED. mg5 07:51 Piedad Hassan RN is Primary Nurse. aa5 07:55 Triage completed. hb 07:57 Arm band placed on. hb 08:00 Alec White MD is Attending Physician. bo1 08:00 Patient has correct armband on for positive identification. Bed in low position. Call aa5 light in reach. Side rails up X 1. 08:45 Assist provider with laceration repair on palmar aspect of proximal phalanx of left aa5 ring finger that was 2.5 cm. or less using sutures. Set up tray. Performed by Alec White MD Dressed with 4X4s, Kerlix, Patient tolerated well. 09:47 Patient did not have IV access during this emergency room visit. aa5 09:49 Primary Nurse role handed off by Piedad Hassan, MARIA DEL ROSARIO aa5 Administered Medications: 08:05 CANCELLED (Duplicate Order): rocephin1 grams IV at bolus once; Give IM per pharmacy aa5 instructions 08:15 Drug: Doxycycline PO 100 mg PO once Route: PO; aa5 09:39 Follow up: Response: No adverse reaction aa5 08:15 Drug: Rocephin (cefTRIAXone) IM 1 grams IM once Route: IM; Site: right gluteus; aa5 09:39 Follow up: Response: No adverse reaction aa5 08:20 Drug: Lidocaine Infiltration (1 %) 1 vials 20 ml Infiltration once; to bedside {Note: aa5 to left ring finger, administered by .} Volume: 20 ml; Route: Infiltration; 08:23 CANCELLED (Physician Discretion): tetanus-diphtheria toxoidadult 0.5 ml IM once; aa5 Provide Vaccine Information Statement (VIS). 08:23 Drug: Boostrix Tdap IM 0.5 ml IM once; as a single dose Route: IM; Site: right deltoid; aa5 09:39 Follow up: Response: No adverse reaction aa5 Medication: 08:23 Vaccine Information Statement (VIS) provided today. Questions and/or concerns aa5 addressed. VIS edition date: October 16, 2020. Outcome: 09:18 Discharge ordered by . arnol 09:47 Discharged to home ambulatory, with family, aaNico 09:47 Condition: stable 09:47 Discharge instructions given to patient, Instructed on discharge instructions, follow up and referral plans. medication usage, wound care, Demonstrated understanding of instructions, follow-up care, medications, wound care, Prescriptions given X 3, 09:48 Patient left the ED. aa5 Signatures: Piedad Hassan RN RN aa5 Baxter, Heather, RN RN Zachariah Yoselin mg5 Alec White MD MD boAngela Corrections: (The following items were deleted from the chart) 09:52 09:50 Patient left the ED. aa5 aa5
--- NOTE | 2024-02-03 09:19 | EDPHYS ---
Physician Documentation [facility] Name: Don Watt Age: 43 yrs Sex: Male : 1980 Arrival Date: 02/03/2024 Time: 07:46 Bed 5 Private MD: ED Physician Alec White HPI: 02/02 08:04 This 43 yrs old Male presents to ER via Ambulatory with complaints of bo1 Laceration To Hand. 08:04 The patient has a laceration related to: [place] and "cut" his bo1 hand on an oyster bed [employer]. The laceration(s) is(are) located on the palmar aspect of proximal phalanx of left ring finger. Onset: The symptoms/episode began/occurred acutely, just prior to arrival, 30 minute(s) ago. Historical: - Allergies: 07:55 Losartan; hb - Home Meds: 07:55 None [Active]; hb - PMHx: 07:55 Hypertension; no longer take meds for HTN; hb - Immunization history:: Adult Immunizations up to date. - Infectious Disease History:: Denies. - Social history:: Smoking status: Patient denies any tobacco usage or history of. ROS: 08:06 Constitutional: Negative for fever, chills, and weight loss, bo1 08:06 MS/extremity: Positive for laceration, of the left hand and palmar aspect of proximal phalanx of left ring finger, 08:06 Neuro: Negative for numbness, tingling, Exam: 08:06 Constitutional: This is a well developed, well nourished patient who is awake, alert, bo1 and in mild acute distress. 08:06 Musculoskeletal/extremity: Extremities: noted in the left hand and palmar aspect of proximal phalanx of left ring finger: laceration, 1.5 cm at the flexor crease of the 4th finger at the MCP joint. No active bleeding. No FB. No tendon exposed. FROM, Joints: All joints appear normal with full range of motion. Tendon exam: specific tendon testing normal through active and passive range of motion 09:16 Skin: injury, Minor abrasion to the left knee, bo1 Vital Signs: 07:54 Pulse 61; Resp 16; Temp 97.8; Pulse Ox 99% on R/A; Weight 140.61 kg; Height 6 ft. 2 in. hb ; Pain 7/10; 08:00 BP 132 / 79; aa5 09:00 BP 135 / 82; Pulse 64; Resp 18 S; Pulse Ox 99% on R/A; aa5 07:54 Body Mass Index 39.80 (140.61 kg, 187.96 cm) hb 07:54 Pain Scale: Adult hb Laceration: 09:14 Wound Repair of 1.5cm ( 0.6in ) subcutaneous laceration to left hand and palmar aspect bo1 of proximal phalanx of left ring finger. Linear shaped.. No active bleeding or FB, no tendon exposure. Distal neuro/vascular/tendon intact. Anesthesia: Local anesthetic administered with 10 mls of 1% lidocaine. Wound prep: Extensive cleansing, Wound irrigation, Wound explored. Skin closed with 3 4-0 Prolene using loose closure to allow drainage. Dressed with Neosporin, 4x4's, Kerlix, non-adherent dressing. Patient tolerated well. MDM: 08:00 Medical Screening Exam initiated bo1 09:25 Differential diagnosis: superficial laceration, Marine environment and exposures to be bo1 considered. ED course: Pt and his mother have been given the risk of infection and signs or symptoms to watch out for. 09:26 Data reviewed: vital signs. bo1 02/02 09:14 Order name: Dressing - Wound; Complete Time: 09:39 bo1 Administered Medications: 08:05 CANCELLED (Duplicate Order): rocephin1 grams IV at bolus once; Give IM per pharmacy aa5 instructions 08:15 Drug: Doxycycline PO 100 mg PO once Route: PO; aa5 09:39 Follow up: Response: No adverse reaction aa5 08:15 Drug: Rocephin (cefTRIAXone) IM 1 grams IM once Route: IM; Site: right gluteus; aa5 09:39 Follow up: Response: No adverse reaction aa5 08:20 Drug: Lidocaine Infiltration (1 %) 1 vials 20 ml Infiltration once; to bedside {Note: aa5 to left ring finger, administered by MD .} Volume: 20 ml; Route: Infiltration; 08:23 CANCELLED (Physician Discretion): tetanus-diphtheria toxoidadult 0.5 ml IM once; aa5 Provide Vaccine Information Statement (VIS). 08:23 Drug: Boostrix Tdap IM 0.5 ml IM once; as a single dose Route: IM; Site: right deltoid; aa5 09:39 Follow up: Response: No adverse reaction aa5 Disposition Summary: 02/03/24 09:18 Discharge Ordered Notes: Location: Home bo1 Problem: new bo1 Symptoms: have improved bo1 Condition: Stable bo1 Diagnosis - Laceration without foreign body of left ring finger without damage to nail bo1 - Abrasion, left knee bo1 Followup: bo1 - With: Private Physician - When: 48 Hours - Reason: Wound Recheck, Recheck today's complaints Discharge Instructions: - Discharge Summary Sheet bo1 - Laceration Care, Adult, [id number] bo1 Forms: - Medication Reconciliation Form bo1 - Antibiotic Education bo1 - Prescription Opioid Use bo1 - Patient Portal Instructions bo1 - Leadership Thank You Letter bo1 Prescriptions: - ketorolac 10 mg Oral tablet - take 1 tablet ORAL route 3 times per day for 4 days; 15 tablet; Refills: 0, bo1 Product Selection Permitted - Doxycycline Hyclate 100 mg Oral Tablet - take 1 tablet ORAL route every 12 hours; 20 tablet; Refills: 0, Product bo1 Selection Permitted - cefpodoxime 200 mg Oral tablet - take 1 tablet ORAL route every 12 hours with food; 20 tablet; Refills: 0, bo1 Product Selection Permitted Signatures: Piedad Hassan RN RN aa5 Rachel Barrios RN RN Alec White MD MD bo1 Corrections: (The following items were deleted from the chart) 08:05 08:02 Rocephin IV 1 grams IV at bolus once; Give IM per pharmacy instructions ordered. aa5 bo1 08:23 08:03 Tetanus-Diphtheria Toxoid IM Adult 0.5 ml IM once; Provide Vaccine Information aa5 Statement (VIS). ordered. bo1 08:23 08:23 Tetanus-Diphtheria Toxoid IM Adult 0.5 ml IM once; Provide Vaccine Information aa5 Statement (VIS). ordered. aa5
[2024-02-03 09:55] VITALS: TEMP 97.8; O2SAT 99
[2024-02-03 09:56] VITALS: BP 132/79
== END 2024-02-03 09:50 | disposition home or self-care (01) ==
LOC: ER 07:46
DX: S61.215A Laceration without foreign body of left ring finger without damage to nail, initial encounter (principal); S80.212A Abrasion, left knee, initial encounter; W01.118A Fall on same level from slipping, tripping and stumbling with subsequent striking against other sharp object, initial encounter
CPT/HCPCS: 12041; J2003; J0696